=== PATIENT | female | born 1960 | race American Indian/Alaskan Native ===

== ENCOUNTER 2017-12-02 14:19 | Outpatient (CLI) | payer BC ==
[2017-12-02 14:32] LABS: Basophils % (Auto) 0.9 % (0.0-1.8); Eosinophils # (Auto) 0.1 K/mm3 (0.0-0.4); Eosinophils % (Auto) 3.2 % (0.0-4.3); Hematocrit 31.8 % (30.3-42.9); Hemoglobin 10.5 gm/dl (10.1-14.3); Mean Corpuscular HGB Conc 33 % (30-34); Mean Corpuscular Hemoglobin 31 pg (28-32); Mean Corpuscular Volume 93 fl (79-97); Monocytes # (Auto) 0.3 K/mm3 (0.0-0.8); Monocytes % (Auto) 10.6 % (0.0-7.3); Platelet Count 127 K/mm3 (140-440); Red Blood Count 3.42 M/mm3 (3.65-5.03); Red Cell Distribution Width 14.9 % (13.2-15.2)
[2017-12-02 14:42] LABS: Alanine Aminotransferase 46 units/L (7-56); Albumin 4.4 g/dL (3.9-5); BUN/Creatinine Ratio 16; Blood Urea Nitrogen 18 mg/dL (7-17); Calcium 9.2 mg/dL (8.4-10.2); Hemolysis Index 0
== END 2017-12-02 14:20 | disposition home or self-care (01) ==
LOC: LABHHL 14:19
PROVIDERS: ATTEND Internal Medicine
DX: I10 Essential (primary) hypertension (principal)
CPT/HCPCS: 36415; 80053; 84443; 85025

== ENCOUNTER 2019-03-29 17:44 | Inpatient (IN) | payer BC, OTHER ==
--- NOTE | 2019-03-29 18:03 | Event Note ---
ED Screening Note Date of service: 03/29/19 Time: 17:59 ED Screening Note: Pt complains of N/V/D and chills x today denies CP, SOB, or cough denies coffee ground emesis/hematemesis denies Syncope or headache hx of CHF This initial assessment/diagnostic orders/clinical plan/treatment(s) is/are subject to change based on patients health status, clinical progression and re- assessment by fellow clinical providers in the ED. Further treatment and workup at subsequent clinical providers discretion. Patient/guardian urged not to elope from the ED as their condition may be serious if not clinically assessed and managed. Initial orders include: rapid flu
[2019-03-29] MEDS ORDERED: SODIUM CHLORIDE 0.9% 500 ML 500 ML IV ONE (18:13)
[2019-03-29] MEDS ORDERED: SODIUM CHLORIDE 0.9% 1000 ML 1,000 ML IV ONE ×2 (18:53→19:34)
--- NOTE | 2019-03-29 18:54 | Emergency Department Report ---
ED General Adult HPI - General Chief complaint: Syncope Stated complaint: PASSED OUT Time Seen by Provider: 03/29/19 17:59 Source: patient, family, RN notes reviewed Mode of arrival: Carried (Peds) Limitations: No Limitations - History of Present Illness Initial comments: Primary care Dr.: Dr Lynne Covarrubias Past medical history: Hypothyroidism; patient cannot recall other medical problems she has this is a 58-year-old female. The patient is not known to this provider previously. The patient is brought to the hospital with family for evaluation. Patient found in bed, with a complaint of possibly passing out. Patient states she's been compliant with her outpatient medications, reports that a few hours ago she began to feel weak, and had painless nausea, vomiting, diarrhea. She denies DVT and pulmonary embolism risk factors. As per family, patient has been having some issues with cognition, memory and recall. As far as they know, she does not carry a formal diagnosis of dementia. Patient also endorses generalized painless chronic weakness. -: Sudden Consistency: constant Improves with: none Worsens with: none - Related Data Allergies Allergy/AdvReac Type Severity Reaction Status Date / Time No Known Allergies Allergy Unverified 03/29/19 17:44 ED Review of Systems ROS: Stated complaint: PASSED OUT Other details as noted in HPI Constitutional: malaise, weakness. denies: fever Eyes: denies: eye discharge ENT: denies: congestion Cardiovascular: syncope. denies: chest pain Gastrointestinal: nausea, vomiting, diarrhea Genitourinary: denies: dysuria Skin: denies: lesions Neurological: weakness, confusion Hematological/Lymphatic: denies: easy bleeding ED Past Medical Hx - Past Medical History Previous Medical History?: Yes Hx Congestive Heart Failure: Yes - Surgical History Past Surgical History?: Yes Hx Pacemaker: Yes - Social History Smoking Status: Never Smoker Substance Use Type: None ED Physical Exam - General Limitations: No Limitations General appearance: alert (the patient is alert to name. The patient is confused), in no apparent distress - Head Head exam: Present: atraumatic, normocephalic - Eye Eye exam: Present: normal appearance, PERRL, EOMI, other (visual acuity intact to finger counting, color perception, reading at a close distance). Absent: nystagmus - ENT ENT exam: Present: normal exam, normal orophraynx, mucous membranes moist, normal external ear exam - Neck Neck exam: Present: normal inspection, full ROM. Absent: tenderness, meningismus - Respiratory Respiratory exam: Present: normal lung sounds bilaterally. Absent: respiratory distress - Cardiovascular Cardiovascular Exam: Present: regular rate, normal rhythm, normal heart sounds. Absent: bradycardia, tachycardia, irregular rhythm, systolic murmur, diastolic murmur, rubs, gallop - GI/Abdominal GI/Abdominal exam: Present: soft. Absent: distended, tenderness, guarding, rebound, rigid, pulsatile mass - Extremities Exam Extremities exam: Present: normal inspection, full ROM, other (2+ pulses noted in the bilateral upper, lower extremities. There is no long bone tenderness. Musculoskeletal compartments are soft. The pelvis is stable.). Absent: pedal edema, calf tenderness - Back Exam Back exam: Present: normal inspection, full ROM. Absent: tenderness, CVA tenderness (R), CVA tenderness (L), paraspinal tenderness, vertebral tenderness - Neurological Exam Neurological exam: Present: alert (alert to name, location, does not know the year.), other (there is no facial droop. The tongue is midline. Extraocular movements are intact bilaterally. Patient speaking in full complete sentences. Shoulder shrug is intact bilaterally. Hearing is grossly intact bilaterally. Visual acuity intact to finger counting and color perception at a close distance. 5/5 strength 4 extremities. Sensation intact to light touch in 4 extremities.) - Psychiatric Psychiatric exam: Present: flat affect - Skin Skin exam: Present: warm, dry, intact, normal color. Absent: rash ED Course Vital Signs 03/29/19 03/29/19 03/29/19 18:00 18:15 18:52 Temperature 93.0 F L Pulse Rate 60 Respiratory 18 Rate Blood Pressure Blood Pressure 137/69 [Left] O2 Sat by Pulse 98 98 Oximetry 03/29/19 03/29/19 03/29/19 18:56 19:06 19:15 Temperature Pulse Rate 80 79 Respiratory 16 14 10 L Rate Blood Pressure 121/82 128/83 Blood Pressure [Left] O2 Sat by Pulse Oximetry 03/29/19 03/29/19 03/29/19 19:30 19:45 20:24 Temperature Pulse Rate 85 75 82 Respiratory 21 18 13 Rate Blood Pressure 125/86 145/91 141/90 Blood Pressure [Left] O2 Sat by Pulse 98 Oximetry 1103/29/19 03/29/19 21:00 21:33 21:34 Temperature 97.4 F L 97.4 F L Pulse Rate 83 Respiratory 17 Rate Blood Pressure 134/88 Blood Pressure [Left] O2 Sat by Pulse 99 Oximetry ED Medical Decision Making - Lab Data Result diagrams: 03/29/19 18:35 03/29/19 18:35 Vital Signs 03/29/19 03/29/19 03/29/19 18:00 18:15 18:52 Temperature 93.0 F L Pulse Rate 60 Respiratory 18 Rate Blood Pressure Blood Pressure 137/69 [Left] O2 Sat by Pulse 98 98 Oximetry 03/29/19 03/29/19 03/29/19 18:56 19:06 19:15 Temperature Pulse Rate 80 79 Respiratory 16 14 10 L Rate Blood Pressure 121/82 128/83 Blood Pressure [Left] O2 Sat by Pulse Oximetry 03/29/19 03/29/19 03/29/19 19:30 19:45 20:24 Temperature Pulse Rate 85 75 82 Respiratory 21 18 13 Rate Blood Pressure 125/86 145/91 141/90 Blood Pressure [Left] O2 Sat by Pulse 98 Oximetry 03/29/19 03/29/19 03/29/19 21:00 21:33 21:34 Temperature 97.4 F L 97.4 F L Pulse Rate 83 Respiratory 17 Rate Blood Pressure 134/88 Blood Pressure [Left] O2 Sat by Pulse 99 Oximetry Lab Results 03/29/19 03/29/19 03/29/19 Range/Units 18:35 18:35 18:35 WBC 6.3 (4.5-11.0) K/mm3 RBC 4.01 (3.65-5.03) M/mm3 Hgb 12.2 (10.1-14.3) gm/dl Hct 36.6 (30.3-42.9) % MCV 91 (79-97) fl MCH 30 (28-32) pg MCHC 33 (30-34) % RDW 14.5 (13.2-15.2) % Plt Count 195 (140-440) K/mm3 Lymph % (Auto) 21.7 (13.4-35.0) % Norton % (Auto) 4.9 (0.0-7.3) % Eos % (Auto) 0.6 (0.0-4.3) % Baso % (Auto) 0.7 (0.0-1.8) % Lymph # 1.4 (1.2-5.4) K/mm3 Norton # 0.3 (0.0-0.8) K/mm3 Eos # 0.0 (0.0-0.4) K/mm3 Baso # 0.0 (0.0-0.1) K/mm3 Seg Neutrophils % 72.1 H (40.0-70.0) % Seg Neutrophils # 4.6 (1.8-7.7) K/mm3 Sodium 137 (137-145) mmol/L Potassium 4.6 (3.6-5.0) mmol/L Chloride 99.5 (98-107) mmol/L Carbon Dioxide 20 L (22-30) mmol/L Anion Gap 22 mmol/L BUN 12 (7-17) mg/dL Creatinine 1.1 (0.7-1.2) mg/dL Estimated GFR > 60 ml/min BUN/Creatinine Ratio 11 % Glucose 164 H (65-100) mg/dL Lactic Acid (0.7-2.0) mmol/L Calcium 9.4 (8.4-10.2) mg/dL Magnesium (1.7-2.3) mg/dL Total Bilirubin 0.40 (0.1-1.2) mg/dL AST 30 (5-40) units/L ALT 23 (7-56) units/L Alkaline Phosphatase 70 (35-129) units/L Ammonia (25-60) umol/L Total Creatine Kinase 174 H (30-135) units/L Troponin T < 0.010 (0.00-0.029) ng/mL Total Protein 8.2 (6.3-8.2) g/dL Albumin 4.4 (3.9-5) g/dL Albumin/Globulin Ratio 1.2 % TSH (0.270-4.200) mlU/mL Free T4 (0.76-1.46) ng/dL Urine Color (Yellow) Urine Turbidity (Clear) Urine pH (5.0-7.0) Ur Specific Hartley (1.003-1.030) Urine Protein (Negative) mg/dL Urine Glucose (UA) (Negative) mg/dL Urine Ketones (Negative) mg/dL Urine Blood (Negative) Urine Nitrite (Negative) Urine Bilirubin (Negative) Urine Urobilinogen (<2.0) mg/dL Ur Leukocyte Esterase (Negative) Urine WBC (Auto) (0.0-6.0) /HPF Urine RBC (Auto) (0.0-6.0) /HPF U Epithel Cells (Auto) (0-13.0) /HPF Urine Bacteria (Auto) (Negative) /HPF Salicylates (2.8-20.0) mg/dL Urine Opiates Screen Urine Methadone Screen Acetaminophen (10.0-30.0) ug/mL Ur Barbiturates Screen Ur Phencyclidine Scrn Ur Amphetamines Screen U Benzodiazepines Scrn Urine Cocaine Screen U Marijuana (THC) Screen Drugs of Abuse Note Plasma/Serum Alcohol (0-0.07) % 03/29/19 03/29/19 03/29/19 Range/Units 18:35 18:55 18:55 WBC (4.5-11.0) K/mm3 RBC (3.65-5.03) M/mm3 Hgb (10.1-14.3) gm/dl Hct (30.3-42.9) % MCV (79-97) fl MCH (28-32) pg MCHC (30-34) % RDW (13.2-15.2) % Plt Count (140-440) K/mm3 Lymph % (Auto) (13.4-35.0) % Norton % (Auto) (0.0-7.3) % Eos % (Auto) (0.0-4.3) % Baso % (Auto) (0.0-1.8) % Lymph # (1.2-5.4) K/mm3 Norton # (0.0-0.8) K/mm3 Eos # (0.0-0.4) K/mm3 Baso # (0.0-0.1) K/mm3 Seg Neutrophils % (40.0-70.0) % Seg Neutrophils # (1.8-7.7) K/mm3 Sodium (137-145) mmol/L Potassium (3.6-5.0) mmol/L Chloride (98-107) mmol/L Carbon Dioxide (22-30) mmol/L Anion Gap mmol/L BUN (7-17) mg/dL Creatinine (0.7-1.2) mg/dL Estimated GFR ml/min BUN/Creatinine Ratio % Glucose (65-100) mg/dL Lactic Acid 4.40 H* (0.7-2.0) mmol/L Calcium (8.4-10.2) mg/dL Magnesium (1.7-2.3) mg/dL Total Bilirubin (0.1-1.2) mg/dL AST (5-40) units/L ALT (7-56) units/L Alkaline Phosphatase (35-129) units/L Ammonia (25-60) umol/L Total Creatine Kinase (30-135) units/L Troponin T (0.00-0.029) ng/mL Total Protein (6.3-8.2) g/dL Albumin (3.9-5) g/dL Albumin/Globulin Ratio % TSH 160.000 H (0.270-4.200) mlU/mL Free T4 1.04 (0.76-1.46) ng/dL Urine Color (Yellow) Urine Turbidity (Clear) Urine pH (5.0-7.0) Ur Specific Hartley (1.003-1.030) Urine Protein (Negative) mg/dL Urine Glucose (UA) (Negative) mg/dL Urine Ketones (Negative) mg/dL Urine Blood (Negative) Urine Nitrite (Negative) Urine Bilirubin (Negative) Urine Urobilinogen (<2.0) mg/dL Ur Leukocyte Esterase (Negative) Urine WBC (Auto) (0.0-6.0) /HPF Urine RBC (Auto) (0.0-6.0) /HPF U Epithel Cells (Auto) (0-13.0) /HPF Urine Bacteria (Auto) (Negative) /HPF Salicylates (2.8-20.0) mg/dL Urine Opiates Screen Urine Methadone Screen Acetaminophen (10.0-30.0) ug/mL Ur Barbiturates Screen Ur Phencyclidine Scrn Ur Amphetamines Screen U Benzodiazepines Scrn Urine Cocaine Screen U Marijuana (THC) Screen Drugs of Abuse Note Plasma/Serum Alcohol (0-0.07) % 03/29/19 03/29/19 03/29/19 Range/Units 18:55 18:55 19:08 WBC (4.5-11.0) K/mm3 RBC (3.65-5.03) M/mm3 Hgb (10.1-14.3) gm/dl Hct (30.3-42.9) % MCV (79-97) fl MCH (28-32) pg MCHC (30-34) % RDW (13.2-15.2) % Plt Count (140-440) K/mm3 Lymph % (Auto) (13.4-35.0) % Norton % (Auto) (0.0-7.3) % Eos % (Auto) (0.0-4.3) % Baso % (Auto) (0.0-1.8) % Lymph # (1.2-5.4) K/mm3 Norton # (0.0-0.8) K/mm3 Eos # (0.0-0.4) K/mm3 Baso # (0.0-0.1) K/mm3 Seg Neutrophils % (40.0-70.0) % Seg Neutrophils # (1.8-7.7) K/mm3 Sodium (137-145) mmol/L Potassium (3.6-5.0) mmol/L Chloride (98-107) mmol/L Carbon Dioxide (22-30) mmol/L Anion Gap mmol/L BUN (7-17) mg/dL Creatinine (0.7-1.2) mg/dL Estimated GFR ml/min BUN/Creatinine Ratio % Glucose (65-100) mg/dL Lactic Acid (0.7-2.0) mmol/L Calcium (8.4-10.2) mg/dL Magnesium (1.7-2.3) mg/dL Total Bilirubin (0.1-1.2) mg/dL AST (5-40) units/L ALT (7-56) units/L Alkaline Phosphatase (35-129) units/L Ammonia (25-60) umol/L Total Creatine Kinase (30-135) units/L Troponin T (0.00-0.029) ng/mL Total Protein (6.3-8.2) g/dL Albumin (3.9-5) g/dL Albumin/Globulin Ratio % TSH (0.270-4.200) mlU/mL Free T4 (0.76-1.46) ng/dL Urine Color Straw (Yellow) Urine Turbidity Clear (Clear) Urine pH 7.0 (5.0-7.0) Ur Specific Hartley 1.008 (1.003-1.030) Urine Protein <15 mg/dl (Negative) mg/dL Urine Glucose (UA) 50 (Negative) mg/dL Urine Ketones Tr (Negative) mg/dL Urine Blood Neg (Negative) Urine Nitrite Neg (Negative) Urine Bilirubin Neg (Negative) Urine Urobilinogen < 2.0 (<2.0) mg/dL Ur Leukocyte Esterase Tr (Negative) Urine WBC (Auto) 2.0 (0.0-6.0) /HPF Urine RBC (Auto) 1.0 (0.0-6.0) /HPF U Epithel Cells (Auto) 1.0 (0-13.0) /HPF Urine Bacteria (Auto) 1+ (Negative) /HPF Salicylates < 0.3 L (2.8-20.0) mg/dL Urine Opiates Screen Urine Methadone Screen Acetaminophen < 5.0 L (10.0-30.0) ug/mL Ur Barbiturates Screen Ur Phencyclidine Scrn Ur Amphetamines Screen U Benzodiazepines Scrn Urine Cocaine Screen U Marijuana (THC) Screen Drugs of Abuse Note Plasma/Serum Alcohol (0-0.07) % 03/29/19 03/29/19 03/29/19 Range/Units 19:11 19:15 19:15 WBC (4.5-11.0) K/mm3 RBC (3.65-5.03) M/mm3 Hgb (10.1-14.3) gm/dl Hct (30.3-42.9) % MCV (79-97) fl MCH (28-32) pg MCHC (30-34) % RDW (13.2-15.2) % Plt Count (140-440) K/mm3 Lymph % (Auto) (13.4-35.0) % Norton % (Auto) (0.0-7.3) % Eos % (Auto) (0.0-4.3) % Baso % (Auto) (0.0-1.8) % Lymph # (1.2-5.4) K/mm3 Norton # (0.0-0.8) K/mm3 Eos # (0.0-0.4) K/mm3 Baso # (0.0-0.1) K/mm3 Seg Neutrophils % (40.0-70.0) % Seg Neutrophils # (1.8-7.7) K/mm3 Sodium (137-145) mmol/L Potassium (3.6-5.0) mmol/L Chloride (98-107) mmol/L Carbon Dioxide (22-30) mmol/L Anion Gap mmol/L BUN (7-17) mg/dL Creatinine (0.7-1.2) mg/dL Estimated GFR ml/min BUN/Creatinine Ratio % Glucose (65-100) mg/dL Lactic Acid (0.7-2.0) mmol/L Calcium (8.4-10.2) mg/dL Magnesium 1.90 (1.7-2.3) mg/dL Total Bilirubin (0.1-1.2) mg/dL AST (5-40) units/L ALT (7-56) units/L Alkaline Phosphatase (35-129) units/L Ammonia 41.0 (25-60) umol/L Total Creatine Kinase (30-135) units/L Troponin T (0.00-0.029) ng/mL Total Protein (6.3-8.2) g/dL Albumin (3.9-5) g/dL Albumin/Globulin Ratio % TSH (0.270-4.200) mlU/mL Free T4 (0.76-1.46) ng/dL Urine Color (Yellow) Urine Turbidity (Clear) Urine pH (5.0-7.0) Ur Specific Hartley (1.003-1.030) Urine Protein (Negative) mg/dL Urine Glucose (UA) (Negative) mg/dL Urine Ketones (Negative) mg/dL Urine Blood (Negative) Urine Nitrite (Negative) Urine Bilirubin (Negative) Urine Urobilinogen (<2.0) mg/dL Ur Leukocyte Esterase (Negative) Urine WBC (Auto) (0.0-6.0) /HPF Urine RBC (Auto) (0.0-6.0) /HPF U Epithel Cells (Auto) (0-13.0) /HPF Urine Bacteria (Auto) (Negative) /HPF Salicylates (2.8-20.0) mg/dL Urine Opiates Screen Presumptive negative Urine Methadone Screen Presumptive negative Acetaminophen (10.0-30.0) ug/mL Ur Barbiturates Screen Presumptive negative Ur Phencyclidine Scrn Presumptive negative Ur Amphetamines Screen Presumptive negative U Benzodiazepines Scrn Presumptive negative Urine Cocaine Screen Presumptive negative U Marijuana (THC) Screen Presumptive negative Drugs of Abuse Note Disclamer Plasma/Serum Alcohol (0-0.07) % 03/29/19 Range/Units 19:15 WBC (4.5-11.0) K/mm3 RBC (3.65-5.03) M/mm3 Hgb (10.1-14.3) gm/dl Hct (30.3-42.9) % MCV (79-97) fl MCH (28-32) pg MCHC (30-34) % RDW (13.2-15.2) % Plt Count (140-440) K/mm3 Lymph % (Auto) (13.4-35.0) % Norton % (Auto) (0.0-7.3) % Eos % (Auto) (0.0-4.3) % Baso % (Auto) (0.0-1.8) % Lymph # (1.2-5.4) K/mm3 Norton # (0.0-0.8) K/mm3 Eos # (0.0-0.4) K/mm3 Baso # (0.0-0.1) K/mm3 Seg Neutrophils % (40.0-70.0) % Seg Neutrophils # (1.8-7.7) K/mm3 Sodium (137-145) mmol/L Potassium (3.6-5.0) mmol/L Chloride (98-107) mmol/L Carbon Dioxide (22-30) mmol/L Anion Gap mmol/L BUN (7-17) mg/dL Creatinine (0.7-1.2) mg/dL Estimated GFR ml/min BUN/Creatinine Ratio % Glucose (65-100) mg/dL Lactic Acid (0.7-2.0) mmol/L Calcium (8.4-10.2) mg/dL Magnesium (1.7-2.3) mg/dL Total Bilirubin (0.1-1.2) mg/dL AST (5-40) units/L ALT (7-56) units/L Alkaline Phosphatase (35-129) units/L Ammonia (25-60) umol/L Total Creatine Kinase (30-135) units/L Troponin T (0.00-0.029) ng/mL Total Protein (6.3-8.2) g/dL Albumin (3.9-5) g/dL Albumin/Globulin Ratio % TSH (0.270-4.200) mlU/mL Free T4 (0.76-1.46) ng/dL Urine Color (Yellow) Urine Turbidity (Clear) Urine pH (5.0-7.0) Ur Specific Hartley (1.003-1.030) Urine Protein (Negative) mg/dL Urine Glucose (UA) (Negative) mg/dL Urine Ketones (Negative) mg/dL Urine Blood (Negative) Urine Nitrite (Negative) Urine Bilirubin (Negative) Urine Urobilinogen (<2.0) mg/dL Ur Leukocyte Esterase (Negative) Urine WBC (Auto) (0.0-6.0) /HPF Urine RBC (Auto) (0.0-6.0) /HPF U Epithel Cells (Auto) (0-13.0) /HPF Urine Bacteria (Auto) (Negative) /HPF Salicylates (2.8-20.0) mg/dL Urine Opiates Screen Urine Methadone Screen Acetaminophen (10.0-30.0) ug/mL Ur Barbiturates Screen Ur Phencyclidine Scrn Ur Amphetamines Screen U Benzodiazepines Scrn Urine Cocaine Screen U Marijuana (THC) Screen Drugs of Abuse Note Plasma/Serum Alcohol < 0.01 (0-0.07) % - EKG Data -: EKG Interpreted by [place] EKG shows normal: sinus rhythm Rate: normal - EKG Data When compared to previous EKG there are: previous EKG unavailable 03/29/19 21:43 Or is no prior EKG available for comparison. This is a sinus rhythm, 81 bpm. There is a left axis deviation, with a prolonged QTC, prolonged KS interval, borderline left ventricular hypertrophy, numerous T-wave abnormalities. The EKG is abnormal, there is no prior for comparison, the EKG is not consistent with ST elevation myocardial infarction. - Radiology Data Radiology results: report reviewed, image reviewed Noncontrast CT scan of the brain is negative for acute disease. X-ray of the chest is negative for acute disease. Noncontrast CT scan abdomen pelvis is negative for acute disease. - Medical Decision Making Differential diagnosis, including not limited to: Orthostasis, vagal event, structural cardiac disease, enteritis, pneumonia, urinary tract infection, early onset dementia, symptomatically hypothyroidism, bacteremia, viremia Assessment and plan: 58-year-old female, with a complaint of painless weakness. She has a nonfocal motor exam, with no neck pain, stiffness or meningeal signs. Most likely has early onset dementia. Also found to be quite hypothyroid with TSH of greater than 160, ruling in for systemic inflammatory response syndrome, merited by hypothermia core temperature of 93, and lactic acidosis. Patient placed on active patient rewarming, IV fluids, Synthroid, empiric antibiotics, and steroids. We recommended admission to the medical service, discussed this with the patient and family, who verbalized understanding and are amenable to this Plan of care. The case is presented to our Hospital physician, Dr. Hammer, has accepted the patient to the medical service. Critical care attestation.: If time is entered above; I have spent that time in minutes in the direct care of this critically ill patient, excluding procedure time. ED Disposition Clinical Impression: Hypothermia, SIRS (systemic inflammatory response syndrome), Hypothyroidism Disposition: OP ADMIT IP TO THIS HOSP Is pt being admited?: Yes Condition: Good
--- NOTE | 2019-03-29 19:00 | XRay Report ---
CHEST 1 VIEW INDICATION / CLINICAL INFORMATION: Weakness, nausea, vomiting, shortness of breath COMPARISON: None available. FINDINGS: SUPPORT DEVICES: AICD is noted HEART / MEDIASTINUM: No significant abnormality. LUNGS / PLEURA: No significant pulmonary or pleural abnormality.. No pneumothorax. ADDITIONAL FINDINGS: No significant additional findings. IMPRESSION: 1. No acute findings. Signer Name: Noel Dong MD Signed: 03/29/2019 6:56 PM Workstation Name: [id number]
[2019-03-29 19:11] LABS: Basophils % (Auto) 0.7 % (0.0-1.8); Eosinophils % (Auto) 0.6 % (0.0-4.3); Hematocrit 36.6 % (30.3-42.9); Hemoglobin 12.2 gm/dl (10.1-14.3); Lymphocytes % (Auto) 21.7 % (13.4-35.0); Mean Corpuscular HGB Conc 33 % (30-34); Mean Corpuscular Volume 91 fl (79-97); Monocytes % (Auto) 4.9 % (0.0-7.3); Platelet Count 195 K/mm3 (140-440); Red Blood Count 4.01 M/mm3 (3.65-5.03); Red Cell Distribution Width 14.5 % (13.2-15.2)
[2019-03-29 19:12] LABS: Lymphocytes # (Auto) 1.4 K/mm3 (1.2-5.4); Monocytes # (Auto) 0.3 K/mm3 (0.0-0.8)
[2019-03-29 19:27] LABS: Bacteria,Urine 1+ /HPF (Negative); Bilirubin,Urine NEG (Negative); Blood,Urine NEG (Negative); Color,Urine Straw (Yellow); Protein,Urine <15 mg/dL mg/dL (Negative); Urobilinogen,Urine < 2.0 mg/dL (<2.0)
[2019-03-29 19:31] LABS: Amphetamine Screen,Urine PRESUMPTIVE NEGATIVE; Benzodiazepines Screen,Urine PRESUMPTIVE NEGATIVE; Cannabinoid Screen,Urine PRESUMPTIVE NEGATIVE; Cocaine Screen,Urine PRESUMPTIVE NEGATIVE; Methadone Screen,Urine PRESUMPTIVE NEGATIVE; Opiate Screen,Urine PRESUMPTIVE NEGATIVE
[2019-03-29 19:34] LABS: Albumin 4.4 g/dL (3.9-5); BUN/Creatinine Ratio 11; Blood Urea Nitrogen 12 mg/dL (7-17); Calcium 9.4 mg/dL (8.4-10.2); Hemolysis Index 141
[2019-03-29 19:39] LABS: Alanine Aminotransferase 23 units/L (7-56)
[2019-03-29] MEDS ORDERED: cefTRIAXone/NS 2 GM/100 ML 2 GM/100 ML BAG IV STA (19:42)
--- NOTE | 2019-03-29 20:24 | Cat Scan Report ---
CT head/brain wo con INDICATION / CLINICAL INFORMATION: 58 years Female; ams syncope weak. TECHNIQUE: Routine CT head without contrast. All CT scans at this location are performed using CT dos e reduction for ALARA by means of automated exposure control. COMPARISON: None. FINDINGS: BRAIN / INTRACRANIAL CONTENTS: No acute hemorrhage, mass effect, midline shift, hydrocephalus, or acu te, large territorial infarct. No chronic infarct or atrophy appreciated. No significant white matter abnormality. CRANIOCERVICAL JUNCTION: No significant abnormality. ORBITS: No significant abnormality of visualized orbits. SINUSES / MASTOIDS: No significant abnormality the visualized paranasal sinuses or mastoid air cells. ADDITIONAL FINDINGS: None. IMPRESSION: 1. No focal mass, hemorrhage, hydrocephalus, or acute, large territorial infarct. Signer Name: Mehran Rendon MD, III Signed: 03/29/2019 8:20 PM Workstation Name: [id number]
--- NOTE | 2019-03-29 20:38 | Cat Scan Report ---
CT ABDOMEN AND PELVIS WITHOUT CONTRAST INDICATION / CLINICAL INFORMATION: ams syncope weak abd pain n/v weak. TECHNIQUE: Axial CT images were obtained through the abdomen and pelvis without IV contrast. All CT scans at [facility] location are performed using CT dose reduction for ALARA by means of automated exposure control. COMPARISON: None available. FINDINGS: LOWER CHEST: Mild cardiomegaly. Cardiac leads are partially visualized. LIVER: No significant abnormality. GALLBLADDER: Cholelithiasis without CT evidence of acute cholecystitis. BILE DUCTS: No significant abnormality. PANCREAS: No significant abnormality. SPLEEN: No significant abnormality. ADRENALS: No significant abnormality. 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 No parenchymal abnormality. No hydronephrosis or nephrolithiasis. LEFT KIDNEY and URETER: No significant abnormality. STOMACH and SMALL BOWEL: No significant abnormality. COLON: Moderate amount of stool in the rectum suggesting constipation. APPENDIX: No significant abnormality. PERITONEUM: No free fluid. No free air. No fluid collection. LYMPH NODES: No significant adenopathy. AORTA and ARTERIES: No significant abnormality. IVC and VEINS: No significant abnormality. URINARY BLADDER: No significant abnormality. REPRODUCTIVE ORGANS: No significant abnormality. Bilateral tubal ligation clips. ADDITIONAL FINDINGS: None. SKELETAL SYSTEM: Mild chronic appearing compression deformity of the L1 vertebral body. IMPRESSION: 1. No acute process identified within the abdomen or pelvis on noncontrast examination. 2. Moderate amount of stool in the rectum suggesting constipation. 3. Cholelithiasis without CT evidence of acute cholecystitis. 4. Incidental note of an ectopic, low-lying right kidney. No hydronephrosis or nephrolithiasis. 5. Mild chronic appearing compression deformity of the L1 vertebral body. Signer Name: Mary Gutierres MD Signed: 03/29/2019 8:34 PM Workstation Name: [id number]
[2019-03-29] MEDS ORDERED: LEVOTHYROXINE 100 MCG INJ IV STA (21:02)
[2019-03-29] MEDS ORDERED: ONDANSETRON 4 MG/2 ML INJ IV PRN (21:36)
[2019-03-29] MEDS ORDERED: ACETAMINOPHEN 325 MG TAB PO PRN (21:36)
[2019-03-29] MEDS ORDERED: MAGNESIUM HYDROXIDE (MOM) ORAL LIQD UDC PO PRN (21:36)
[2019-03-29] MEDS ORDERED: dexAMETHasone 20 MG/5 ML VIAL IV ONE (21:46)
--- NOTE | 2019-03-29 21:50 | History and Physical Report ---
History of Present Illness Date of examination: 03/29/19 Date of admission: 03/29/19 Chief complaint: Generalized weakness History of present illness: 58-year-old -[place] female with known history of hypothyroidism, congestive heart failure and history of pacemaker /defibrillator in place. She was found on the bed today quite lethargic and she had complained of generalized weakness. She denies any fever no chills, no chest pain or shortness of breath. Her work-up in the emergency room was significant for core temperature of about 93F, she had elevated lactic acid, and she had a significantly elevated TSH level. She was subsequently placed on IV Synthroid, empiric IV antibiotics, and IV fluid. She was also placed on a bear hugger. She indicates that she has been compliant with her medications and has been following up with her primary care physician to adjust her medications as needed. Past History Past Medical History: anemia, heart failure Past Surgical History: Other (History of pacemaker and defibrillator in place) Social history: no significant social history Family history: CAD, cancer Medications and Allergies Allergies Allergy/AdvReac Type Severity Reaction Status Date / Time No Known Allergies Allergy Unverified 03/29/19 17:44 Active Meds: Active Medications Acetaminophen (Tylenol) 650 mg PO Q4H PRN PRN Reason: Pain MILD(1-3)/Fever >100.5/BOWLING Sodium Chloride (Nacl 0.9% 1000 Ml) 1,000 mls @ 125 mls/hr IV DIRECT HUSAM Piperacillin Sod/Tazobactam Sod (Zosyn/Ns 3.375gm/50ml) 3.375 gm in 50 mls @ 100 mls/hr IV Q8HR HUSAM; Protocol Magnesium Hydroxide (Milk Of Magnesia) 30 ml PO Q4H PRN PRN Reason: Constipation Ondansetron HCl (Zofran) 4 mg IV Q8H PRN PRN Reason: Nausea And Vomiting Sodium Chloride (Sodium Chloride Flush Syringe 10 Ml) 10 ml IV BID HUSAM Sodium Chloride (Sodium Chloride Flush Syringe 10 Ml) 10 ml IV PRN PRN PRN Reason: LINE FLUSH Review of Systems Constitutional: fatigue, weakness, lethargy Exam - Constitutional Vitals: Temp Pulse Resp BP Pulse Ox 97.4 F L 83 17 134/88 99 03/29/19 21:34 03/29/19 21:00 03/29/19 21:00 03/29/19 21:00 03/29/19 21:00 General appearance: Present: no acute distress, well-nourished - EENT Eyes: Present: PERRL, EOM intact ENT: hearing intact, clear oral mucosa, dentition normal - Neck Neck: Present: supple, normal ROM - Respiratory Respiratory effort: normal Respiratory: bilateral: CTA - Cardiovascular Rhythm: regular Heart Sounds: Present: S1 & S2, systolic murmur - Extremities Extremities: no ischemia, No edema Peripheral Pulses: within normal limits - Abdominal General gastrointestinal: Present: soft, non-tender, non-distended - Integumentary Integumentary: Present: clear, warm, dry - Musculoskeletal Musculoskeletal: strength equal bilaterally - Psychiatric Psychiatric: appropriate mood/affect, intact judgment & insight - Neurologic Neurologic: CNII-XII intact, moves all extremities Results - Labs CBC & Chem 7: 03/29/19 18:35 03/29/19 18:35 Labs: Abnormal lab results 03/29/19 03/29/19 03/29/19 Range/Units 18:35 18:35 18:35 Seg Neutrophils % 72.1 H (40.0-70.0) % Carbon Dioxide 20 L (22-30) mmol/L Glucose 164 H (65-100) mg/dL Lactic Acid (0.7-2.0) mmol/L Total Creatine Kinase 174 H (30-135) units/L TSH (0.270-4.200) mlU/mL Salicylates (2.8-20.0) mg/dL Acetaminophen (10.0-30.0) ug/mL 03/29/19 03/29/19 03/29/19 Range/Units 18:35 18:55 18:55 Seg Neutrophils % (40.0-70.0) % Carbon Dioxide (22-30) mmol/L Glucose (65-100) mg/dL Lactic Acid 4.40 H* (0.7-2.0) mmol/L Total Creatine Kinase (30-135) units/L TSH 160.000 H (0.270-4.200) mlU/mL Salicylates < 0.3 L (2.8-20.0) mg/dL Acetaminophen (10.0-30.0) ug/mL 11/12/19 Range/Units 18:55 Seg Neutrophils % (40.0-70.0) % Carbon Dioxide (22-30) mmol/L Glucose (65-100) mg/dL Lactic Acid (0.7-2.0) mmol/L Total Creatine Kinase (30-135) units/L TSH (0.270-4.200) mlU/mL Salicylates (2.8-20.0) mg/dL Acetaminophen < 5.0 L (10.0-30.0) ug/mL Assessment and Plan - Patient Problems (1) SIRS (systemic inflammatory response syndrome) Current Visit: Yes Status: Acute Plan to address problem: She will be closely monitored on the medical floor and placed on IV fluid. She has been placed on empiric IV antibiotics. There is no obvious source of infection at this time. We will monitor vital signs closely. (2) Hypothyroidism Current Visit: Yes Status: Acute Plan to address problem: She has been placed on IV Synthroid. Patient would need to be evaluated by an electrician's helper. We will monitor TSH and free T4. (3) Hypothermia Current Visit: Yes Status: Acute Plan to address problem: She has been placed on a bear hugger. Will monitor vital signs closely. (4) Lactic acidosis Current Visit: Yes Status: Acute Plan to address problem: We will continue to monitor chemistry including lactic acid. Will continue on IV fluid normal saline. (5) DVT prophylaxis Current Visit: Yes Status: Acute Plan to address problem: Patient placed on subcutaneous heparin. (6) Full code status Current Visit: Yes Status: Acute
[2019-03-29] MEDS ORDERED: dexAMETHasone 20 MG/5 ML VIAL ONE (22:14)
[2019-03-29] MEDS ORDERED: PIPERACILLIN/TAZOBACTAM 3.375 3.375 GM/50 ML BAG IV ONE (22:14)
[2019-03-29] MEDS: PIPERACILLIN/TAZOBACTAM 3.375 3.375 GM/50 ML BAG IV SCH (22:15)
[2019-03-29] MEDS: SODIUM CHLORIDE 0.9% 1000 ML 1,000 ML IV SCH (23:18)
[2019-03-30] MEDS: PIPERACILLIN/TAZOBACTAM 3.375 3.375 GM/50 ML BAG IV SCH (05:37)
[2019-03-30 07:51] LABS: Basophils % (Auto) 0.1 % (0.0-1.8); Hematocrit 35.2 % (30.3-42.9); Hemoglobin 11.5 gm/dl (10.1-14.3); Lymphocytes # (Auto) 0.6 K/mm3 (1.2-5.4); Lymphocytes % (Auto) 8.9 % (13.4-35.0); Mean Corpuscular HGB Conc 33 % (30-34); Mean Corpuscular Volume 90 fl (79-97); Monocytes # (Auto) 0.1 K/mm3 (0.0-0.8); Platelet Count 193 K/mm3 (140-440); Red Blood Count 3.92 M/mm3 (3.65-5.03); Red Cell Distribution Width 13.8 % (13.2-15.2)
[2019-03-30 07:58] LABS: INR 1.03 (0.87-1.13)
[2019-03-30 08:00] LABS: Partial Thromboplastin Time 26.3 Sec. (24.2-36.6)
[2019-03-30 08:13] LABS: BUN/Creatinine Ratio 10; Blood Urea Nitrogen 9 mg/dL (7-17); Calcium 8.4 mg/dL (8.4-10.2); Hemolysis Index 6
[2019-03-30] MEDS: SODIUM CHLORIDE 0.9% 1000 ML 1,000 ML IV SCH ×2 (10:06→22:03)
--- NOTE | 2019-03-30 11:09 | Progress Note ---
Assessment and Plan Assessment and plan: 58-year-old woman who presented to the hospital complaining of nausea vomiting diarrhea and chills 1 day. Reported history of CHF. She also endorsed generalized painless chronic weakness. CT head no acute findings. CT abdomen and pelvis no acute findings, moderate amount of stool consistent with constipation, cholelithiasis without cholecystitis, incidental ectopic low-lying right kidney mild chronic-appearing compression deformity of the L1 vertebral body. Chest x-ray; no acute findings Labs UA negative, TSH 160, free T4 0.04 Diagnoses Hypothyroidism Hypothermia, rectal temp was 93 on presentation Sirs without organomegaly dysfunction, no evidence of infection Hypothyroidism Lactic acidosis ? History of CHF Plan Patient was put on Syed hugger was warmed. Temperature has improved Check total T4, will increase dose of Synthroid to 200 g, is compliant with synthroid today Home meds are not in the system, requested for nurse of the home medications. Checked with [facility]. Patient filled Synthroid 175 g earlier this month. Obtain echo to determine LV function. DVT prophylaxis with Lovenox History Interval history: Review of systems Constitutional: No fevers, no malaise, no joint pains CVS: No chest pain, no orthopnea, no dyspnea on exertion, no pedal edema GI: No abdominal pain, no diarrhea, no vomiting, no constipation Respiratory: no wheezing, no coughing Hospitalist Physical - Physical exam Narrative exam: General.: Appears well, no distress, nontoxic HEENT: Moist mucous membranes, extraocular muscles intact, no lymphadenopathy Neck: supple Cardiac: S1-S2 heard Lungs: clear to auscultation bilaterally Abdomen: soft , nontender, nondistended, bowel sounds positive Extremities: no edema clubbing or cyanosis Skin: no rash or lesions Neurologic: no gross focal deficits Psych: calm, and cooperative - Constitutional Vitals: Temp Pulse Resp BP Pulse Ox 97.2 F L 89 18 106/68 100 03/30/19 05:20 03/30/19 05:20 03/30/19 05:20 03/30/19 05:20 03/30/19 05:20 General appearance: Present: no acute distress, well-nourished Results - Labs CBC & Chem 7: 03/30/19 07:20 03/30/19 07:20 Labs: Laboratory Last Values WBC 7.1 K/mm3 (4.5-11.0) 03/30/19 07:20 RBC 3.92 M/mm3 (3.65-5.03) 03/30/19 07:20 Hgb 11.5 gm/dl (10.1-14.3) 03/30/19 07:20 Hct 35.2 % (30.3-42.9) 03/30/19 07:20 MCV 90 fl (79-97) 03/30/19 07:20 MCH 29 pg (28-32) 03/30/19 07:20 MCHC 33 % (30-34) 03/30/19 07:20 RDW 13.8 % (13.2-15.2) 03/30/19 07:20 Plt Count 193 K/mm3 (140-440) 03/30/19 07:20 Lymph % (Auto) 8.9 % (13.4-35.0) L 03/30/19 07:20 [place] % (Auto) 2.0 % (0.0-7.3) 03/30/19 07:20 Eos % (Auto) 0.0 % (0.0-4.3) 03/30/19 07:20 Baso % (Auto) 0.1 % (0.0-1.8) 03/30/19 07:20 Lymph # 0.6 K/mm3 (1.2-5.4) L 03/30/19 07:20 [place] # 0.1 K/mm3 (0.0-0.8) 03/30/19 07:20 Eos # 0.0 K/mm3 (0.0-0.4) 03/30/19 07:20 Baso # 0.0 K/mm3 (0.0-0.1) 03/30/19 07:20 Seg Neutrophils % 89.0 % (40.0-70.0) H 03/30/19 07:20 Seg Neutrophils # 6.3 K/mm3 (1.8-7.7) 03/30/19 07:20 PT 13.4 Sec. (12.2-14.9) 03/30/19 07:20 INR 1.03 (0.87-1.13) 03/30/19 07:20 APTT 26.3 Sec. (24.2-36.6) 03/30/19 07:20 Sodium 142 mmol/L (137-145) 03/30/19 07:20 Potassium 4.1 mmol/L (3.6-5.0) 03/30/19 07:20 Chloride 108.7 mmol/L (98-107) H 03/30/19 07:20 Carbon Dioxide 20 mmol/L (22-30) L 03/30/19 07:20 Anion Gap 17 mmol/L 03/30/19 07:20 BUN 9 mg/dL (7-17) 03/30/19 07:20 Creatinine 0.9 mg/dL (0.7-1.2) 03/30/19 07:20 Estimated GFR > 60 ml/min 03/30/19 07:20 BUN/Creatinine Ratio 10 % 03/30/19 07:20 Glucose 114 mg/dL (65-100) H 03/30/19 07:20 POC Glucose 137 (70-105) H 03/29/19 17:52 Lactic Acid 1.00 mmol/L (0.7-2.0) 03/30/19 07:20 Calcium 8.4 mg/dL (8.4-10.2) 03/30/19 07:20 Magnesium 1.90 mg/dL (1.7-2.3) 03/29/19 19:15 Total Bilirubin 0.40 mg/dL (0.1-1.2) 03/29/19 18:35 AST 30 units/L (5-40) 03/29/19 18:35 ALT 23 units/L (7-56) 03/29/19 18:35 Alkaline Phosphatase 70 units/L (35-129) 03/29/19 18:35 Ammonia 41.0 umol/L (25-60) 03/29/19 19:15 Total Creatine Kinase 174 units/L (30-135) H 03/29/19 18:35 Troponin T < 0.010 ng/mL (0.00-0.029) 03/29/19 18:35 Total Protein 8.2 g/dL (6.3-8.2) 03/29/19 18:35 Albumin 4.4 g/dL (3.9-5) 03/29/19 18:35 Albumin/Globulin Ratio 1.2 % 03/29/19 18:35 TSH 160.000 mlU/mL (0.270-4.200) H 03/29/19 18:55 Free T4 1.04 ng/dL (0.76-1.46) 03/29/19 18:55 Urine Color Straw (Yellow) 03/29/19 19:08 Urine Turbidity Clear (Clear) 03/29/19 19:08 Urine pH 7.0 (5.0-7.0) 03/29/19 19:08 Ur Specific [place] 1.008 (1.003-1.030) 03/29/19 19:08 Urine Protein <15 mg/dl mg/dL (Negative) 03/29/19 19:08 Urine Glucose (UA) 50 mg/dL (Negative) 03/29/19 19:08 Urine Ketones Tr mg/dL (Negative) 03/29/19 19:08 Urine Blood Neg (Negative) 03/29/19 19:08 Urine Nitrite Neg (Negative) 03/29/19 19:08 Urine Bilirubin Neg (Negative) 03/29/19 19:08 Urine Urobilinogen < 2.0 mg/dL (<2.0) 03/29/19 19:08 Ur Leukocyte Esterase Tr (Negative) 03/29/19 19:08 Urine WBC (Auto) 2.0 /HPF (0.0-6.0) 03/29/19 19:08 Urine RBC (Auto) 1.0 /HPF (0.0-6.0) 03/29/19 19:08 U Epithel Cells (Auto) 1.0 /HPF (0-13.0) 03/29/19 19:08 Urine Bacteria (Auto) 1+ /HPF (Negative) 03/29/19 19:08 Salicylates < 0.3 mg/dL (2.8-20.0) L 03/29/19 18:55 Urine Opiates Screen Presumptive negative 03/29/19 19:11 Urine Methadone Screen Presumptive negative 03/29/19 19:11 Acetaminophen < 5.0 ug/mL (10.0-30.0) L 03/29/19 18:55 Ur Barbiturates Screen Presumptive negative 03/29/19 19:11 Ur Phencyclidine Scrn Presumptive negative 03/29/19 19:11 Ur Amphetamines Screen Presumptive negative 03/29/19 19:11 U Benzodiazepines Scrn Presumptive negative 03/29/19 19:11 Urine Cocaine Screen Presumptive negative 03/29/19 19:11 U Marijuana (THC) Screen Presumptive negative 03/29/19 19:11 Drugs of Abuse Note Disclamer 03/29/19 19:11 Plasma/Serum Alcohol < 0.01 % (0-0.07) 03/29/19 19:15 Active Medications - Current Medications Current Medications: Generic Name Dose Route Start Last Admin Trade Name Freq PRN Reason Stop Dose Admin Acetaminophen 650 mg 03/29/19 21:36 Tylenol PO Q4H PRN Pain MILD(1-3)/Fever >100.5/BOWLING Enoxaparin Sodium 40 mg 03/30/19 22:00 Enoxaparin SUB-Q QDAY@2200 HUSAM Sodium Chloride 1,000 mls @ 125 mls/hr 03/29/19 22:00 03/30/19 10:06 Nacl 0.9% 1000 Ml IV 125 mls/hr DIRECT HUSAM Administration Levothyroxine Sodium 200 mcg 03/30/19 11:07 Synthroid PO DAILY@0600 HUSAM Magnesium Hydroxide 30 ml 03/29/19 21:36 Milk Of Magnesia PO Q4H PRN Constipation Ondansetron HCl 4 mg 03/29/19 21:36 Zofran IV Q8H PRN Nausea And Vomiting Sodium Chloride 10 ml 03/29/19 22:00 03/30/19 10:07 Sodium Chloride Flush Syringe 10 Ml IV 10 ml BID HUSAM Administration Sodium Chloride 10 ml 03/29/19 21:36 Sodium Chloride Flush Syringe 10 Ml IV PRN PRN LINE FLUSH
[2019-03-30] MEDS: LEVOTHYROXINE 100 MCG TAB PO SCH (15:26)
[2019-03-30] MEDS ORDERED: ENOXAPARIN 40 MG/0.4 ML INJ SUB-Q SCH (22:00)
[2019-03-31] MEDS: LEVOTHYROXINE 100 MCG TAB PO SCH (05:53)
[2019-03-31] MEDS: SODIUM CHLORIDE 0.9% 1000 ML 1,000 ML IV SCH (06:32)
--- NOTE | 2019-03-31 10:06 | Discharge Summary ---
Providers - Providers Date of Admission: 03/29/19 21:36 Attending physician: PABLO MOONEY MD Primary care physician: ANDREIA LUGO Hospitalization Condition: Good Hospital course: 58-year-old woman who presented to the hospital complaining of nausea vomiting diarrhea and chills 1 day. Reported history of CHF. She also endorsed generalized painless chronic weakness. CT head no acute findings. CT abdomen and pelvis no acute findings, moderate amount of stool consistent with constipation, cholelithiasis without cholecystitis, incidental ectopic low- lying right kidney mild chronic-appearing compression deformity of the L1 vertebral body. Chest x-ray; no acute findings Labs UA negative, TSH 160, free T4 0.04 Diagnoses Hypothyroidism Hypothermia, rectal temp was 93 on presentation Sirs without organomegaly dysfunction, no evidence of infection Hypothyroidism Lactic acidosis Chronic systolic CHF Plan Patient was put on Syed hugger was warmed. Temperature has improved Synthroid dose was increased Echo confirmed systolic CHF with EF of 25%. She was euvolemic DVT prophylaxis with Lovenox Disposition: DC-01 TO HOME OR SELFCARE Time spent for discharge: 33 mins Core Measure Documentation - Palliative Care Palliative Care/ Comfort Measures: Not Applicable - Core Measures Any of the following diagnoses?: heart failure - Heart Failure Discharge Requirements JANNY/ARB for LVSD if EF <40%: Yes Beta nicole at discharge: No Reason for no beta nicole on DC: Bradycardia Exam - Constitutional Vitals: Temp Pulse Resp BP Pulse Ox 98.1 F 94 H 24 95/61 99 03/31/19 04:45 03/31/19 04:45 03/31/19 04:45 03/31/19 04:45 03/31/19 04:45 General appearance: Present: no acute distress, well-nourished - EENT Eyes: Present: PERRL ENT: hearing intact, clear oral mucosa - Neck Neck: Present: supple, normal ROM - Respiratory Respiratory effort: normal Respiratory: bilateral: CTA - Cardiovascular Heart Sounds: Present: S1 & S2. Absent: rub, click - Extremities Extremities: pulses symmetrical, No edema Peripheral Pulses: within normal limits - Abdominal General gastrointestinal: Present: soft, non-tender, non-distended, normal bowel sounds Female genitourinary: Present: normal - Integumentary Integumentary: Present: clear, warm, dry - Musculoskeletal Musculoskeletal: gait normal, strength equal bilaterally - Psychiatric Psychiatric: appropriate mood/affect, intact judgment & insight - Neurologic Neurologic: CNII-XII intact, moves all extremities Plan Follow up with: PRIMARY CARE, [Referring] - 3-5 Days Prescriptions: Pravastatin [Pravachol] 40 mg PO QHS #30 tablet Donepezil [Aricept] 10 mg PO QDAY #30 tablet Metoprolol [Lopressor TAB] 12.5 mg PO BID #30 tablet Levothyroxine [Synthroid] 200 mcg PO DAILY@0600 #60 tablet raNITIdine HCl [Zantac] 150 mg PO HS #30 tablet Lisinopril [Zestril TAB] 2.5 mg PO QDAY #30 tab
[2019-03-31 12:51] VITALS: BP 111/73
--- NOTE | 2019-03-31 15:17 | Progress Note ---
Assessment and Plan Assessment and plan: 58-year-old woman who presented to the hospital complaining of nausea vomiting diarrhea and chills 1 day. Reported history of CHF. She also endorsed generalized painless chronic weakness. CT head no acute findings. CT abdomen and pelvis no acute findings, moderate amount of stool consistent with constipation, cholelithiasis without cholecystitis, incidental ectopic low-lying right kidney mild chronic-appearing compression deformity of the L1 vertebral body. Chest x-ray; no acute findings Labs UA negative, TSH 160, free T4 0.04 Diagnoses Hypothyroidism Hypothermia, rectal temp was 93 on presentation Sirs without organomegaly dysfunction, no evidence of infection Hypothyroidism Lactic acidosis ? History of CHF Plan Patient was put on Syed hugger was warmed. Temperature has improved Check total T4, will increase dose of Synthroid to 200 g, is compliant with synthroid today Home meds are not in the system, requested for nurse of the home medications. Checked with [facility]. Patient filled Synthroid 175 g earlier this month. Obtain echo to determine LV function. DVT prophylaxis with Lovenox History Interval history: Review of systems Constitutional: No fevers, no malaise, no joint pains CVS: No chest pain, no orthopnea, no dyspnea on exertion, no pedal edema GI: No abdominal pain, no diarrhea, no vomiting, no constipation Respiratory: no wheezing, no coughing Hospitalist Physical - Physical exam Narrative exam: General.: Appears well, no distress, nontoxic HEENT: Moist mucous membranes, extraocular muscles intact, no lymphadenopathy Neck: supple Cardiac: S1-S2 heard Lungs: clear to auscultation bilaterally Abdomen: soft , nontender, nondistended, bowel sounds positive Extremities: no edema clubbing or cyanosis Skin: no rash or lesions Neurologic: no gross focal deficits Psych: calm, and cooperative - Constitutional Vitals: Temp Pulse Resp BP Pulse Ox 98.1 F 96 H 16 111/73 97 03/31/19 11:49 03/31/19 11:49 03/31/19 11:49 03/31/19 11:49 03/31/19 11:49 General appearance: Present: no acute distress, well-nourished Results - Labs CBC & Chem 7: 03/30/19 07:20 03/30/19 07:20 Labs: Laboratory Last Values WBC 7.1 K/mm3 (4.5-11.0) 03/30/19 07:20 RBC 3.92 M/mm3 (3.65-5.03) 03/30/19 07:20 Hgb 11.5 gm/dl (10.1-14.3) 03/30/19 07:20 Hct 35.2 % (30.3-42.9) 03/30/19 07:20 MCV 90 fl (79-97) 03/30/19 07:20 MCH 29 pg (28-32) 03/30/19 07:20 MCHC 33 % (30-34) 03/30/19 07:20 RDW 13.8 % (13.2-15.2) 03/30/19 07:20 Plt Count 193 K/mm3 (140-440) 03/30/19 07:20 Lymph % (Auto) 8.9 % (13.4-35.0) L 03/30/19 07:20 [place] % (Auto) 2.0 % (0.0-7.3) 03/30/19 07:20 Eos % (Auto) 0.0 % (0.0-4.3) 03/30/19 07:20 Baso % (Auto) 0.1 % (0.0-1.8) 03/30/19 07:20 Lymph # 0.6 K/mm3 (1.2-5.4) L 03/30/19 07:20 [place] # 0.1 K/mm3 (0.0-0.8) 03/30/19 07:20 Eos # 0.0 K/mm3 (0.0-0.4) 03/30/19 07:20 Baso # 0.0 K/mm3 (0.0-0.1) 03/30/19 07:20 Seg Neutrophils % 89.0 % (40.0-70.0) H 03/30/19 07:20 Seg Neutrophils # 6.3 K/mm3 (1.8-7.7) 03/30/19 07:20 PT 13.4 Sec. (12.2-14.9) 03/30/19 07:20 INR 1.03 (0.87-1.13) 03/30/19 07:20 APTT 26.3 Sec. (24.2-36.6) 03/30/19 07:20 Sodium 142 mmol/L (137-145) 03/30/19 07:20 Potassium 4.1 mmol/L (3.6-5.0) 03/30/19 07:20 Chloride 108.7 mmol/L (98-107) H 03/30/19 07:20 Carbon Dioxide 20 mmol/L (22-30) L 03/30/19 07:20 Anion Gap 17 mmol/L 03/30/19 07:20 BUN 9 mg/dL (7-17) 03/30/19 07:20 Creatinine 0.9 mg/dL (0.7-1.2) 03/30/19 07:20 Estimated GFR > 60 ml/min 03/30/19 07:20 BUN/Creatinine Ratio 10 % 03/30/19 07:20 Glucose 114 mg/dL (65-100) H 03/30/19 07:20 POC Glucose 137 (70-105) H 03/29/19 17:52 Lactic Acid 1.00 mmol/L (0.7-2.0) 03/30/19 07:20 Calcium 8.4 mg/dL (8.4-10.2) 03/30/19 07:20 Magnesium 1.90 mg/dL (1.7-2.3) 03/29/19 19:15 Total Bilirubin 0.40 mg/dL (0.1-1.2) 03/29/19 18:35 AST 30 units/L (5-40) 03/29/19 18:35 ALT 23 units/L (7-56) 03/29/19 18:35 Alkaline Phosphatase 70 units/L (35-129) 03/29/19 18:35 Ammonia 41.0 umol/L (25-60) 03/29/19 19:15 Total Creatine Kinase 157 units/L (30-135) H 03/30/19 15:51 Troponin T < 0.010 ng/mL (0.00-0.029) 03/30/19 15:51 Total Protein 8.2 g/dL (6.3-8.2) 03/29/19 18:35 Albumin 4.4 g/dL (3.9-5) 03/29/19 18:35 Albumin/Globulin Ratio 1.2 % 03/29/19 18:35 TSH 160.000 mlU/mL (0.270-4.200) H 03/29/19 18:55 Free T4 1.04 ng/dL (0.76-1.46) 03/29/19 18:55 Thyroxine (T4) 5.7 ug/dL (4.0-12.0) 03/30/19 15:51 Urine Color Straw (Yellow) 03/29/19 19:08 Urine Turbidity Clear (Clear) 03/29/19 19:08 Urine pH 7.0 (5.0-7.0) 03/29/19 19:08 Ur Specific [place] 1.008 (1.003-1.030) 03/29/19 19:08 Urine Protein <15 mg/dl mg/dL (Negative) 03/29/19 19:08 Urine Glucose (UA) 50 mg/dL (Negative) 03/29/19 19:08 Urine Ketones Tr mg/dL (Negative) 03/29/19 19:08 Urine Blood Neg (Negative) 03/29/19 19:08 Urine Nitrite Neg (Negative) 03/29/19 19:08 Urine Bilirubin Neg (Negative) 03/29/19 19:08 Urine Urobilinogen < 2.0 mg/dL (<2.0) 03/29/19 19:08 Ur Leukocyte Esterase Tr (Negative) 03/29/19 19:08 Urine WBC (Auto) 2.0 /HPF (0.0-6.0) 03/29/19 19:08 Urine RBC (Auto) 1.0 /HPF (0.0-6.0) 03/29/19 19:08 U Epithel Cells (Auto) 1.0 /HPF (0-13.0) 03/29/19 19:08 Urine Bacteria (Auto) 1+ /HPF (Negative) 03/29/19 19:08 Salicylates < 0.3 mg/dL (2.8-20.0) L 03/29/19 18:55 Urine Opiates Screen Presumptive negative 03/29/19 19:11 Urine Methadone Screen Presumptive negative 03/29/19 19:11 Acetaminophen < 5.0 ug/mL (10.0-30.0) L 03/29/19 18:55 Ur Barbiturates Screen Presumptive negative 03/29/19 19:11 Ur Phencyclidine Scrn Presumptive negative 03/29/19 19:11 Ur Amphetamines Screen Presumptive negative 03/29/19 19:11 U Benzodiazepines Scrn Presumptive negative 03/29/19 19:11 Urine Cocaine Screen Presumptive negative 03/29/19 19:11 U Marijuana (THC) Screen Presumptive negative 03/29/19 19:11 Drugs of Abuse Note Disclamer 03/29/19 19:11 Plasma/Serum Alcohol < 0.01 % (0-0.07) 03/29/19 19:15 Active Medications - Current Medications Current Medications: Generic Name Dose Route Start Last Admin Trade Name Freq PRN Reason Stop Dose Admin Acetaminophen 650 mg 03/29/19 21:36 Tylenol PO Q4H PRN Pain MILD(1-3)/Fever >100.5/BOWLING Enoxaparin Sodium 40 mg 03/30/19 22:00 03/30/19 21:56 Enoxaparin SUB-Q 40 mg QDAY@2200 HUSAM Administration Sodium Chloride 1,000 mls @ 125 mls/hr 03/29/19 22:00 03/31/19 06:32 Nacl 0.9% 1000 Ml IV 125 mls/hr DIRECT HUSAM Administration Levothyroxine Sodium 200 mcg 03/30/19 11:07 03/31/19 05:53 Synthroid PO 200 mcg DAILY@0600 HUSAM Administration Magnesium Hydroxide 30 ml 03/29/19 21:36 Milk Of Magnesia PO Q4H PRN Constipation Ondansetron HCl 4 mg 03/29/19 21:36 Zofran IV Q8H PRN Nausea And Vomiting Sodium Chloride 10 ml 03/29/19 22:00 03/30/19 21:56 Sodium Chloride Flush Syringe 10 Ml IV 10 ml BID HUSAM Administration Sodium Chloride 10 ml 03/29/19 21:36 Sodium Chloride Flush Syringe 10 Ml IV PRN PRN LINE FLUSH
== END 2019-03-31 17:00 | disposition home or self-care (01) | DRG 923 ==
LOC: ED 17:44 → 3A 21:36
PROVIDERS: ADMIT Internal Medicine Geriatric Medicine; ATTEND Internal Medicine
DX: T68.XXXA Hypothermia, initial encounter (principal); R65.10 Systemic inflammatory response syndrome (SIRS) of non-infectious origin without acute organ dysfunction; E87.2 Acidosis; E03.9 Hypothyroidism, unspecified; I50.9 Heart failure, unspecified; Z95.810 Presence of automatic (implantable) cardiac defibrillator; Z82.49 Family history of ischemic heart disease and other diseases of the circulatory system; Z80.9 Family history of malignant neoplasm, unspecified
CPT/HCPCS: 36415; 70450; 71045; 74176; 80048; 80053; 80307; 80320; 81001; 82140; 82550; 82962; 83735; 84436; 84439; 84443; 84484; 85025; 85610; 85730; 87040; 87086; 93005; 93010; 93306; 96374; G0378; G0480; J0696; J1100; J1650; J2543; J7030